=== PATIENT | male | born 1965 | race Hispanic/Latino ===

== ENCOUNTER → 2017-11-02 | Outpatient (CLI) | payer MEDICARE ==
[~2017-11-02] MED LIST: GADOBENATE DIMEGLUMINE 1 ML IV ONE; SODIUM CHLORIDE 0.9% 50ML 50 ML ONE
--- NOTE | 2017-11-02 11:37 | Diagnostic Imaging Report ---
History: Headaches Comparison studies: None Technique: Pre-and post coronal and sagittal T1. Coronal T2. Axial DWI through the brain. Dynamic postcontrast coronal through the sella Intravenous contrast: 15 cc of MultiHance Findings: Sella: Normal in size and configuration. Pituitary gland: 5 mm hypoenhancing lesion in the left side of the pituitary gland, with delayed homogenization. Normal sized pituitary gland. Pituitary stalk: Normal in size and at midline. Optic chiasm: Well visualized and unremarkable. Cavernous sinuses: Normal in size and symmetric. Internal carotid arteries: Normal flow void appearance. Sphenoid sinuses: No T2 hyperintense mucosal inflammatory changes. There are no abnormalities in the visualized sections through the brain. Incidentally noted mildly expanded intrinsically T1 hyperintense, T2 hypointense left middle ethmoid cell, most likely related to small mucocele. Mild mucosal thickening of the bilateral maxillary and anterior ethmoid sinus IMPRESSION: 1. 5 mm left pituitary microadenoma. 2. No other intracranial abnormality Signed by: DR Buck Shukla M.D. on 11/02/2017 11:33 AM
== END ==
LOC: MRI 09:32
PROVIDERS: ATTEND Family Medicine
DX: D35.2 Benign neoplasm of pituitary gland (principal)
CPT/HCPCS: 70553